=== PATIENT | female | born 1955 | race Caucasian/White ===

== ENCOUNTER → 2019-06-19 | Day surgery (SDC) | payer MEDICARE, OTHER ==
[~2019-06-19] MED LIST: Lactated Ringers 1,000 ML IV SCH; Lidocaine 2% 5 ML SDV INJECT ONE; Midazolam 1 MG/ML 2 ML SDV IV ONE; Propofol 200 MG/20 ML SDV IV ONE; Sodium Chloride 0.9% 10 ML Syringe FLUSH PRN
--- NOTE | 2019-06-19 06:11 | EDM.PDOC ---
ED HPI GENERAL MEDICAL PROBLEM - General Chief Complaint: ENT Problem Stated Complaint: THROAT Time Seen by Provider: 06/19/19 06:07 Source of Information: Reports: Patient History Limitations: Reports: No Limitations - History of Present Illness INITIAL COMMENTS - FREE TEXT/NARRATIVE: Shamika is a 63 yo female with a foreign body sensation on her throat. She accidentally swallowed a tooth crown,around 2 am this morning,and since that time feels like it is stuck. She is able to swallow saliva. Denies any respiratory difficulty. - Related Data Allergies Allergy/AdvReac Type Severity Reaction Status Date / Time latex Allergy Rash Verified 06/19/19 06:02 Home Meds: Home Meds DULoxetine [Cymbalta] 60 mg PO BID 06/19/19 [History] Levothyroxine [Synthroid] 88 mcg PO ACBREAKFAST 06/19/19 [History] Pregabalin 100 mg PO TID 06/19/19 [History] ED ROS ENT - Review of Systems Review Of Systems: Comprehensive ROS is negative, except as noted in HPI. ED EXAM, ENT - Physical Exam Exam: See Below Exam Limited By: Uncooperative General Appearance: Alert, WD/WN, No Apparent Distress Ears: Normal Canal Nose: No Blood Mouth/Throat: Normal Inspection. No: Bleeding, Dental Abcess, Dental Pain Neck: Normal Inspection, Supple Respiratory/Chest: No Respiratory Distress, Lungs Clear Cardiovascular: Normal Peripheral Pulses Course - Vital Signs Last Recorded V/S: Last Vital Signs Temp 98.2 F 06/19/19 05:50 Pulse 78 06/19/19 05:50 Resp 18 06/19/19 05:50 BP 131/80 06/19/19 05:50 Pulse Ox 100 06/19/19 05:50 - Orders/Labs/Meds Orders: Active Orders 24 hr Category Date Time Status Abdomen 1V Flat [CR] Stat Exams 06/19/19 06:39 Ordered CXR [Chest 1V Frontal] [CR] Stat Exams 06/19/19 06:11 Ordered Neck Soft Tissue [CR] Stat Exams 06/19/19 06:05 Ordered Departure - Departure Time of Disposition: 06:46 Disposition: Still A Patient 30 Condition: Good Clinical Impression: Foreign body alimentary tract - Discharge Information Referrals: Kyra Green NP [Primary Care Provider] - Forms: ED Department Discharge Sepsis Event Note - Evaluation Sepsis Screening Result: No Definite Risk - Focused Exam Vital Signs: Vital Signs Temp Pulse Resp BP Pulse Ox 06/19/19 05:50 98.2 F 78 18 131/80 100 Date Exam was Performed: 06/19/19 Time Exam was Performed: 06:46 - Problem List & Annotations (1) Foreign body alimentary tract SNOMED Code(s): 00231094 Code(s): T18.9XXA - FOREIGN BODY OF ALIMENTARY TRACT, PART UNSP, INIT ENCNTR Status: Acute Current Visit: Yes Qualifiers: Encounter type: initial encounter Qualified Code(s): T18.9XXA - Foreign body of alimentary tract, part unspecified, initial encounter - Problem List Review Problem List Initiated/Reviewed/Updated: Yes - My Orders Last 24 Hours: My Active Orders 06/19/19 06:05 Neck Soft Tissue [CR] Stat 06/19/19 06:11 CXR [Chest 1V Frontal] [CR] Stat - Assessment/Plan Last 24 Hours: My Active Orders 06/19/19 06:05 Neck Soft Tissue [CR] Stat 06/19/19 06:11 CXR [Chest 1V Frontal] [CR] Stat Plan: Consult DR Martinez.See his note for further details
--- NOTE | 2019-06-19 06:59 | PCM.HP.2 ---
H&P History of Present Illness - General Date of Service: 06/19/19 - History of Present Illness Initial Comments - Free Text/Narative: 63 yo wf who was eating crackers at 2 am. A dental crown, broke off. Now complains of some esophageal discomfort at the base of her neck. This crown apparently had a hook on it which cold move the device. Xrays have failed to reveal any obvious dental device. Does have a hx of reflux for which she takes pepto bismal. - Related Data Allergies/Adverse Reactions: Allergies Allergy/AdvReac Type Severity Reaction Status Date / Time latex Allergy Rash Verified 06/19/19 06:02 Home Medications: Home Meds DULoxetine [Cymbalta] 60 mg PO BID 06/19/19 [History] Levothyroxine [Synthroid] 88 mcg PO ACBREAKFAST 06/19/19 [History] Pregabalin 100 mg PO TID 06/19/19 [History] Past Medical History Endocrine/Metabolic History: Reports: Hypothyroidism - Past Surgical History Neurological Surgical History: Reports: Lumbar Spine Social & Family History - Tobacco Use Smoking Status *Q: Never Smoker - Recreational Drug Use Recreational Drug Use: No H&P Review of Systems - Review of Systems: Review Of Systems: See Below General: Reports: No Symptoms HEENT: Reports: Sore Throat Pulmonary: Reports: No Symptoms Cardiovascular: Reports: No Symptoms Gastrointestinal: Reports: No Symptoms Exam - Exam Exam: See Below - Vital Signs Vital Signs: Last Vital Signs Temp 98.2 F 06/19/19 05:50 Pulse 78 06/19/19 05:50 Resp 18 06/19/19 05:50 BP 131/80 06/19/19 05:50 Pulse Ox 100 06/19/19 05:50 Weight: 90.718 kg - Exam General: Alert, Oriented HEENT: Mucosa Moist & Nellie, Posterior Pharynx Clear, TMs Clear Neck: Supple, Trachea Midline Lungs: Clear to Auscultation Cardiovascular: Regular Rate, Regular Rhythm Sepsis Event Note - Evaluation Sepsis Screening Result: No Definite Risk - Focused Exam Vital Signs: Vital Signs Temp Pulse Resp BP Pulse Ox 06/19/19 05:50 98.2 F 78 18 131/80 100 Date Exam was Performed: 06/19/19 Time Exam was Performed: 06:51 *Q Meaningful Use (ADM) - VTE *Q VTE Pharmacological Contraindications *Q: Patient Scheduled Surgery - Problem List (1) Foreign body alimentary tract SNOMED Code(s): 32909515 ICD Code: T18.9XXA - FOREIGN BODY OF ALIMENTARY TRACT, PART UNSP, INIT ENCNTR Status: Acute Current Visit: Yes Qualifiers: Encounter type: initial encounter Qualified Code(s): T18.9XXA - Foreign body of alimentary tract, part unspecified, initial encounter Problem List Initiated/Reviewed/Updated: Yes Orders Last 24hrs: Active Orders 24 hr Category Date Time Status Abdomen 1V Flat [CR] Stat Exams 06/19/19 06:39 Taken CXR [Chest 1V Frontal] [CR] Stat Exams 06/19/19 06:11 Taken Neck Soft Tissue [CR] Stat Exams 06/19/19 06:05 Taken Assessment/Plan Comment:: One would expect that this dental device would be radiopaque. Given her complaints and a possibility of a hook feel an upper endoscopy is indicated. EGD was discussed with the patient as well as the risks of bleeding, infection and perforation. She expressed understanding and asks us to proceed.
--- NOTE | 2019-06-19 08:06 | PCM.OPNOTE ---
- General Post-Op/Procedure Note Date of Surgery/Procedure: 06/19/19 Operative Procedure(s): Upper endoscopy Findings: no foreign body found in esophagus. No evidence of esophageal trauma hiatal hernia stomach some succus no foreign body noted on irrigation. Pre Op Diagnosis: foreign body in esophagus Post-Op Diagnosis: hiatal hernia. no evidence of foreign body Anesthesia Technique: MAC Primary Surgeon: Issac Martinez Anesthesia Provider: Sheela Sharma Pathology: none Complications: None Condition: Good Free Text/Narrative:: see dictation
--- NOTE | 2019-06-19 11:20 | OR ---
DATE OF OPERATION: 06/19/2019 SURGEON: Issac Martinez MD PROCEDURE PERFORMED: Upper endoscopy. PREOPERATIVE DIAGNOSIS: Foreign body in alimentary tract. POSTOPERATIVE DIAGNOSIS: Hiatal hernia. INDICATIONS FOR PROCEDURE: This is a 63-year-old white female who presented to the emergency department early this morning with a complaint of a dental implant/crown having broken off and she had a feeling that this was stuck in her throat. X-ray studies were negative for any retained foreign body on either neck, chest, or KUB. However, due to her complaints of throat discomfort, she was offered and accepted an upper endoscopy. DESCRIPTION OF PROCEDURE: After an excellent IV sedation was administered, the bite block was inserted. The flexible endoscope was passed very carefully down the patient's esophagus into the stomach. Stomach was insufflated. We did not advance the scope into the duodenum, however, the following findings were noted. The stomach did have some retained succus. We did irrigate as best as possible, did not note anything beyond what appeared to be the crackers which she had eaten earlier. No dental implant was noted. The esophagus was normal. There was no evidence of any trauma or a marked irritation. The scope did have to be removed half way through the procedure due to laryngospasm. Photos were taken along the esophagus and in the area of the vocal cords where nothing was noted. No evidence of any abrasion. The patient tolerated the procedure well. /[id number] /RUTHIE CANO
--- NOTE | 2019-06-20 10:48 | CR ---
INDICATION: Question foreign body. CHEST, ONE VIEW: PA view of the chest was obtained 06/19/2019 - no comparisons. The heart, mediastinum, bony structures were unremarkable. An active infiltrate or effusion was not identified. No evidence of radiopaque foreign body was seen. IMPRESSION: No acute process. MTDD
--- NOTE | 2019-06-20 11:02 | CR ---
INDICATION: Question foreign body. NECK SOFT TISSUE: Frontal and lateral views of the neck were obtained for soft tissue and revealed no definite radiopaque foreign body, although a tiny triangular-shaped calcification is noted posterior to the infraglottic area at the level of the C5-6 intervertebral disk space. Hypertrophic degenerative changes are noted off vertebral bodies of moderate degree in the eit-ab-khjka levels with narrowing of the disk spaces from C3 through C6-7. Hypertrophic changes are most prominent anteriorly off the C6-7 vertebral bodies and may be slightly impinging upon the cervical esophagus at that level. The prevertebral spaces appeared essentially normal. IMPRESSION: 1. No definite radiopaque foreign body identified - tiny triangular calcific or metallic density is noted just posterior to the cervical trachea of questionable significance. 2. Slight impingement on the cervical esophagus may be present due to hypertrophic spondylosis at C6-7. MTDD
--- NOTE | 2019-06-20 11:06 | CR ---
INDICATION: Question foreign body. ABDOMEN: Supine view of the abdomen was obtained 06/19/2019 - no comparisons except for a MRI dated 12/03/2018. Evidence of fusions are noted at the mid to lower lumbosacral spine. Degenerative disc disease is present. The pattern of gas and feces is nonspecific without evidence of a radiopaque foreign body identified. IMPRESSION: No definite radiopaque foreign body identified. MTDD
== END | disposition home or self-care (01) ==
LOC: FB.ED 05:43 → FB.SDS 07:03
PROVIDERS: ATTEND Surgery
DX: R09.89 Other specified symptoms and signs involving the circulatory and respiratory systems (principal); K44.9 Diaphragmatic hernia without obstruction or gangrene; J38.5 Laryngeal spasm; E03.9 Hypothyroidism, unspecified; Z91.040 Latex allergy status; Z79.899 Other long term (current) drug therapy
CPT/HCPCS: 00731; 43235; 70360; 71045; 74018; 99283; 99284; J2001; J2250; J2704; J7120

== ENCOUNTER 2021-12-10 02:54 | Emergency (ER) | payer OTHER, MEDICARE | END 2021-12-10 04:15 | disposition home or self-care (01) | LOC: FB.ED 02:54 | DX: L30.9 Dermatitis, unspecified (principal); E03.9 Hypothyroidism, unspecified; K21.9 Gastro-esophageal reflux disease without esophagitis; Z88.1 Allergy status to other antibiotic agents; Z91.040 Latex allergy status; Z88.8 Allergy status to other drugs, medicaments and biological substances; Z79.899 Other long term (current) drug therapy | CPT/HCPCS: 99282; A9270 ==

== ENCOUNTER 2022-01-02 17:25 | Emergency (ER) | payer MEDICARE, OTHER | END 2022-01-02 20:55 | disposition home or self-care (01) | LOC: FB.ED 17:25 | DX: S30.0XXA Contusion of lower back and pelvis, initial encounter (principal); S80.01XA Contusion of right knee, initial encounter; S20.221A Contusion of right back wall of thorax, initial encounter; J44.9 Chronic obstructive pulmonary disease, unspecified; Z88.1 Allergy status to other antibiotic agents; Z91.040 Latex allergy status; Z88.8 Allergy status to other drugs, medicaments and biological substances; Z79.899 Other long term (current) drug therapy; W01.0XXA Fall on same level from slipping, tripping and stumbling without subsequent striking against object, initial encounter | CPT/HCPCS: 72040; 72072; 72100; 73562-RT; 73610-RT; 99281; 99283 ==

== ENCOUNTER 2024-11-16 11:12 | Emergency (ER) | payer MEDICARE, OTHER ==
[2024-11-16] MEDS ORDERED: Sodium Chloride 0.9% 10 ML Syringe FLUSH PRN (11:19)
[2024-11-16] MEDS ORDERED: methylPREDNISolone Sodium Succinate 125 MG/2 ML SDV IM ONE (11:20)
[2024-11-16] MEDS: methylPREDNISolone Sodium Succinate 125 MG/2 ML SDV IVPUSH ONE (11:49)
[2024-11-16 11:50] LABS: BASOPHILS ABSOLUTE AUTO 0.0 x10-3/uL (0.0-0.1); BASOPHILS PERCENT AUTO 0.4 % (0.2-1.5); EOSINOPHILS ABSOLUTE AUTO 0.2 x10-3/uL (0.0-0.8); EOSINOPHILS PERCENT AUTO 3.8 % (0.6-8.1); LYMPHOCYTES ABSOLUTE AUTO 1.1 x10-3/uL (1.0-4.4); LYMPHOCYTES PERCENT AUTO 19.8 % (18.4-52.1); MEAN PLATELET VOLUME 8.9 fL (7.1-12.4); MONOCYTES ABSOLUTE AUTO 0.4 x10-3/uL (0.3-1.0); MONOCYTES PERCENT AUTO 7.3 % (4.4-15.7); NEUTROPHILS ABSOLUTE AUTO 3.9 x10-3/uL (1.5-6.3); NEUTROPHILS PERCENT AUTO 68.8 % (30.8-76.2); PLATELET COUNT,PLT 475 x10(3)uL (151-488); RED BLOOD CELL COUNT 3.60 x10(6)uL (3.60-5.20); RED CELL DISTRIBUTION WIDTH 15.8 % (12.3-16.5); WHITE BLOOD CELL COUNT,WBC 5.6 x10-3/uL (3.0-10.3)
[2024-11-16 11:54] LABS: BLOOD UREA NITROGEN,BUN 30 mg/dL (7-18); CARBON DIOXIDE,CO2 24 mmol/L (21-32); CHLORIDE,CL 110 mmol/L (100-110); CREATININE 1.0 mg/dL (0.55-1.02); ESTIMATED GFR 62 mL/min (>60); GLUCOSE RANDOM 88 mg/dL (80-116); POTASSIUM,K 4.3 mmol/L (3.5-5.3); SODIUM,NA 145 mmol/L (135-145)
[2024-11-16 12:00] LABS: A/G RATIO 1.0; ALANINE AMINOTRANSFERASE,ALT 8 U/L (12-36); ASPARTATE AMNIOTRANSFERASE,AST 35 IU/L (5-25); BILIRUBIN TOTAL 0.8 mg/dL (0.1-1.3); PROTEIN TOTAL,TP 7.2 g/dL (6.0-8.0)
[2024-11-16 12:07] LABS: PRO B-TYPE NATRIUR PEPT,BNPPRO 25441.0 pg/mL (<=125)
[2024-11-16] MEDS: Iopamidol 755 Mg/ML 100 ML Bottle IV SCH (13:04)
[2024-11-16] MEDS: Heparin Sodium 5,000 Units/ML Vial IVPUSH ONE (13:12)
[2024-11-16] MEDS: Heparin Sodium/0.45% NaCl 500 ML IV SCH (13:39)
[2024-11-16] MEDS: Furosemide 40 MG/4 ML VIAL IVPUSH ONE (13:43)
== END 2024-11-16 15:20 ==
LOC: FB.ED 11:12
DX: I50.9 Heart failure, unspecified (principal); I24.9 Acute ischemic heart disease, unspecified; E03.9 Hypothyroidism, unspecified; Z88.1 Allergy status to other antibiotic agents; Z91.040 Latex allergy status; Z88.8 Allergy status to other drugs, medicaments and biological substances; Z79.890 Hormone replacement therapy; Z79.899 Other long term (current) drug therapy
CPT/HCPCS: 36415; 71045; 71275; 80053; 83880; 84484; 85025; 85379; 85730; 96365; 96366; 96375; 99285; A9270; J1644; J2919; Q9967